=== PATIENT | male | born 1975 | race African-American/Black ===

== ENCOUNTER 2019-07-25 08:22 | Emergency (ER) | payer SELFPAY ==
[~2019-07-25] VITALS: Ht 175.3 cm; Wt 90.0 kg
[2019-07-25 08:27] VITALS: BP 160/98
== END 2019-07-25 09:03 | disposition home or self-care (01) ==
LOC: ER 08:22
DX: J06.9 Acute upper respiratory infection, unspecified (principal); R21 Rash and other nonspecific skin eruption
CPT/HCPCS: 99282